=== PATIENT | female | born 1975 ===

== ENCOUNTER 2021-08-16 23:47 | Emergency (ER) | payer SELFPAY ==
[2021-08-17 01:06] LABS: Absolute Lymphocytes (CBC) 1.9 K/uL (0.7-4.9); Basophils % 0.2 % (0-1.3); MPV 8.2 fL (7.6-11.3); RBC Red Blood Cell Count 4.27 M/uL (3.86-4.86)
[2021-08-17 01:32] LABS: BUN Blood Urea Nitrogen 7 mg/dL (7-18); Bicarbonate 24 mmol/L (21-32); Glucose Level 123 mg/dL (74-106); Potassium 3.5 mmol/L (3.5-5.1); Sodium Level 141 mmol/L (136-145); Troponin (Emerg Dept Use Only) < 0.02 ng/mL (0.0-0.045)
--- NOTE | 2021-08-17 02:03 | ER ---
Nurse's Notes [facility] Name: Rosie Gao Age: 46 yrs Sex: Female : 1975 Arrival Date: 08/16/2021 Time: 23:53 Bed 23 Private MD: Diagnosis: Coronavirus infection, unspecified;Pneumonia due to SARS-associated coronavirus Presentation: 08/17 00:05 Chief complaint: Patient states: Reports she woke up SOB, denied fever reports she has ea been having a little bit of a cough. Coronavirus screen: At this time, the client does not indicate any symptoms associated with coronavirus-19. Ebola Screen: No symptoms or risks identified at this time. Initial Sepsis Screen: Does the patient meet any 2 criteria? No. Patient's initial sepsis screen is negative. Does the patient have a suspected source of infection? No. Patient's initial sepsis screen is negative. Risk Assessment: Do you want to hurt yourself or someone else? Patient reports no desire to harm self or others. Onset of symptoms was August 17, 2021. 00:05 Method Of Arrival: Ambulatory ea 00:05 Acuity: MARISOL 3 ea Triage Assessment: 00:55 General: Appears in no apparent distress. comfortable, well groomed. General: Behavior df1 is calm, cooperative. Pain: Denies pain. Cardiovascular: No deficits noted. Respiratory: No deficits noted. Breath sounds are clear bilaterally. GI: No deficits noted. : No deficits noted. Derm: No deficits noted. Musculoskeletal: No deficits noted. Historical: - Allergies: 00:09 No Known Allergies; ea - Home Meds: 00:09 None [Active]; ea - PMHx: 00:09 None; ea - PSHx: 00:09 section; ea - Immunization history:: Adult Immunizations unknown. - Social history:: Smoking status: unknown. Screenin:07 Abuse screen: Denies threats or abuse. Nutritional screening: No deficits noted. ea Tuberculosis screening: No symptoms or risk factors identified. Fall Risk None identified. Assessment: 00:56 Pain: Denies pain. df1 00:56 Respiratory: Breath sounds are clear bilaterally. df1 00:57 Pain: Pain began gradually. df1 00:57 Pain: Pain does not radiate. df1 Vital Signs: 00:53 BP 110 / 79; Pulse 77; Resp 18; Pulse Ox 99% on R/A; df1 02:19 BP 108 / 75; Pulse 74; Resp 15; Temp 98.9(O); Pulse Ox 100% on R/A; Pain 0/10; bc5 Vitals: 00:53 Cardiac Rhythm Assessment Regular. df1 Nelson Coma Score: 00:53 Eye Response: spontaneous(4). Verbal Response: oriented(5). Motor Response: obeys df1 commands(6). Total: 15. ED Course: 08/16 23:53 Patient arrived in ED. ja2 23:56 [facility] kb 23:56 Marv White MD is Attending Physician. kb 08/17 00:07 Triage completed. ea 00:08 Patient maintains SpO2 saturation greater than 95% on room air. ea 00:08 Patient has correct armband on for positive identification. Bed in low position. Call ea light in reach. gambling monitor on. 00:36 Chest Single View XRAY In Process Unspecified. EDMS 00:52 Virgie De La Cruz is Primary Nurse. df1 00:53 Basic Metabolic Panel Sent. df1 00:53 CBC with Diff Sent. df1 00:53 Troponin (emerg Dept Use Only) Sent. df1 00:54 Inserted saline lock: 20 gauge in left antecubital area, using aseptic technique. df1 00:56 No provider procedures requiring assistance completed. df1 00:57 Arm band placed on right wrist. df1 02:19 IV discontinued, intact, bleeding controlled, No redness/swelling at site. Pressure bc5 dressing applied. Administered Medications: No medications were administered Outcome: 02:02 Discharge ordered by MD. kb 02:19 Discharged to home ambulatory, with family. bc5 02:19 Condition: stable 02:19 Discharge instructions given to patient, family, Instructed on discharge instructions. 02:20 Patient left the ED. bc5 Signatures: Dispatcher [employer] EDVA Tanya Rodriguez FNP-C FNP-Ckb Antunez, Elena, RN Elicia Mead ea, Bella, RN RN bc5 Furlich, Dawn df1
--- NOTE | 2021-08-17 02:03 | EDPHYS ---
Physician Documentation [facility] Name: Rosie Gao Age: 46 yrs Sex: Female : 1975 Arrival Date: 08/16/2021 Time: 23:53 Bed 23 Private MD: ED Physician Marv White HPI: 08/17 00:32 This 46 yrs old Female presents to ER via Ambulatory with complaints of Chest Pain, kb COVID SYMPTOMS. 00:32 The patient has shortness of breath at rest. Onset: The symptoms/episode began/occurred kb today. Duration: The symptoms are continuous. The patient's shortness of breath is aggravated by nothing, is alleviated by nothing. Associated signs and symptoms: The patient has no apparent associated signs or symptoms. Severity of symptoms: At their worst the symptoms were mild moderate in the emergency department the symptoms are unchanged. The patient has not experienced similar symptoms in the past. The patient has not recently seen a physician. Pt reports shortness of breath that started today. States she has had a slight cough. Denies fever, chest pain or any other symptoms. Historical: - Allergies: 00:09 No Known Allergies; ea - Home Meds: 00:09 None [Active]; ea - PMHx: 00:09 None; ea - PSHx: 00:09 section; ea - Immunization history:: Adult Immunizations unknown. - Social history:: Smoking status: unknown. ROS: 00:31 Constitutional: Negative for fever, chills, and weight loss. kb 00:31 Respiratory: Positive for cough, shortness of breath, Negative for dyspnea on exertion, hemoptysis, orthopnea, pleurisy, sputum production, wheezing. 00:31 All other systems are negative. Exam: 00:31 Constitutional: This is a well developed, well nourished patient who is awake, alert, kb and in no acute distress. Head/Face: Normocephalic, atraumatic. ENT: Moist Mucous membranes Cardiovascular: Regular rate and rhythm with a normal S1 and S2. No gallops, murmurs, or rubs. No pulse deficits. Respiratory: Respirations even and unlabored. No increased work of breathing, no retractions or nasal flaring. Skin: Warm, dry with normal turgor. Normal color. MS/ Extremity: Pulses equal, no cyanosis. Neurovascular intact. Full, normal range of motion. Neuro: Awake and alert, GCS 15, oriented to person, place, time, and situation. Moves all extremities. Normal gait. Psych: Awake, alert, with orientation to person, place and time. Behavior, mood, and affect are within normal limits. 00:42 ECG was reviewed by the Attending Physician. Vital Signs: 00:53 BP 110 / 79; Pulse 77; Resp 18; Pulse Ox 99% on R/A; df1 02:19 BP 108 / 75; Pulse 74; Resp 15; Temp 98.9(O); Pulse Ox 100% on R/A; Pain 0/10; bc5 Juliet Coma Score: 00:53 Eye Response: spontaneous(4). Verbal Response: oriented(5). Motor Response: obeys df1 commands(6). Total: 15. MDM: 08/16 23:56 Patient medically screened. 08/17 00:31 Data reviewed: vital signs, nurses notes. Data interpreted: Pulse oximetry: on room air kb is 100 %. Interpretation: normal. 02:02 Counseling: I had a detailed discussion with the patient and/or guardian regarding: the kb historical points, exam findings, and any diagnostic results supporting the discharge/admit diagnosis, lab results, radiology results, the need for outpatient follow up, a family practitioner, to return to the emergency department if symptoms worsen or persist or if there are any questions or concerns that arise at home. 08/17 00:03 Order name: Troponin (emerg Dept Use Only); Complete Time: 01:51 kb 08/17 00:03 Order name: CBC with Diff; Complete Time: 01:27 kb 08/17 00:03 Order name: Chest Single View XRAY 08/17 00:03 Order name: Basic Metabolic Panel; Complete Time: 01:51 kb 08/17 02:01 Order name: SARS-COV-2 RT PCR; Complete Time: 02:02 EDMS 08/17 00:03 Order name: EKG; Complete Time: 00:04 kb 08/17 00:03 Order name: EKG - Nurse/Tech; Complete Time: 00:20 kb EC:42 Rate is 69 beats/min. Rhythm is regular. QRS [facility] is Normal. NV interval is normal at kb 146 msec. QRS interval is normal at 68 msec. QT interval is normal at 398 msec. Administered Medications: No medications were administered Disposition: 04:10 Co-signature as Attending Physician, Marv White MD. [email or web address] Disposition Summary: 08/17/21 02:02 Discharge Ordered Location: Home kb Condition: Stable kb Diagnosis - Coronavirus infection, unspecified kb - Pneumonia due to SARS-associated coronavirus kb Followup: kb - With: Emergency Department - When: As needed - Reason: Worsening of condition Followup: kb - With: Private Physician - When: 2 - 3 days - Reason: Recheck today's complaints, Continuance of care, Re-evaluation by your physician Discharge Instructions: - Discharge Summary Sheet kb - COVID-19 kb - COVID-19 Frequently Asked Questions kb - 10 Things You Can Do to Manage Your COVID-19 Symptoms at Home - [facility] kb Forms: - Medication Reconciliation Form kb - Thank You Letter kb - Antibiotic Education kb - Prescription Opioid Use kb Signatures: Dispatcher [employer] EDMS Tanya Rodriguez, GENEVA GORE-Pat Mason RN RN ea Holmes, Maurice, MD MD [email or web address] Corrections: (The following items were deleted from the chart) 00:27 00:04 CORONAVIRUS+BRZ ordered. EDVT EDVT
[2021-08-17 02:29] VITALS: BP 108/75; TEMP 98.9; O2SAT 100
--- NOTE | 2021-08-17 08:25 | RAD REPORT ---
EXAM DESCRIPTION: Jason Single View08/17/2021 12:36 am CLINICAL HISTORY: sob COMPARISON: none FINDINGS: [id number] bilateral pulmonary opacities. . The heart is normal size IMPRESSION: [id number] bilateral pulmonary opacities may represent pneumonia
== END 2021-08-17 02:20 | disposition home or self-care (01) ==
LOC: ER 23:47
DX: U07.1 COVID-19 (principal); J12.82 Pneumonia due to coronavirus disease 2019
CPT/HCPCS: 36415; 71045; 80048; 84484; 85025; 93005; 99284; U0003